=== PATIENT | male | born 1945 | race Caucasian/White ===

== ENCOUNTER → 2016-08-31 | Outpatient (CLI) | payer OTHER ==
[~2016-08-31] MED LIST: ZOFRAN4 MG PO
== END | disposition home or self-care (01) ==
LOC: CDC 14:14
DX: I49.9 Cardiac arrhythmia, unspecified (principal)
CPT/HCPCS: 93000

== ENCOUNTER 2017-11-28 16:59 | Inpatient (IN) | payer OTHER ==
[~2017-11-28] VITALS: Ht 188 cm; Wt 85.1 kg
[2017-11-28 18:30] LABS: BASOPHIL (%) 0.6 % (0-1); BASOPHIL COUNT 0.1 K/uL (0-0.1); EOSINOPHIL (%) 1.4 % (0-5); EOSINOPHIL COUNT 0.1 K/uL (0-0.3); HEMATOCRIT 39.8 % (38.0-50.0); IMMATURE GRANULOCYTE (%) 0.2 % (0.0-0.7); LYMPHOCYTE (%) 19.4 % (15-42); LYMPHOCYTE COUNT 1.6 K/uL (1.0-2.8); MCH 31.7 PG (29.0-34.0); MCHC 35.2 G/DL (30.0-36.0); MCV 90.2 FL (86-99); MONOCYTE (%) 9.9 % (3-12); MONOCYTE COUNT 0.8 K/uL (0-0.8); NEUTROPHIL (%) 68.5 % (45-76); NEUTROPHIL COUNT 5.8 K/uL (1.8-6.4); PLATELET COUNT 266 K/uL (156-360); RBC DIS.WIDTH-CV 12.7 % (11.8-14.6); RBC DIS.WIDTH-SD 41.8 % (39-53); RED BLOOD COUNT 4.41 M/uL (4.00-5.50); WHITE BLOOD COUNT 8.5 K/uL (4.1-10.2)
[2017-11-28 18:39] LABS: CHLORIDE 104 mEq/L (99-109); POTASSIUM 3.8 mEq/L (3.7-5.4); SODIUM 138 mEq/L (136-147)
[2017-11-28 18:41] LABS: GLUCOSE 84 mg/dL (70-99)
[2017-11-28 18:45] LABS: CREATININE 0.9 mg/dL (0.6-1.3); GFR ESTIMATE (CALCULATED) > 59 mL/min/ (58.99-99999)
[2017-11-28 18:46] LABS: UREA NITROGEN (BUN) 21 mg/dL (9-23)
[2017-11-28 18:50] LABS: INTER. NORMALIZED RATIO 1.1
[2017-11-28 18:52] LABS: TROP-I INTERPRETATION NEGATIVE; TROPONIN-I < 0.01 ng/mL (0.0-0.30)
[2017-11-28] MEDS ORDERED: BUPROPION XL300 MG PO (20:29)
[2017-11-28] MEDS ORDERED: ASPIRIN PO (20:38)
[2017-11-28 23:15] VITALS: BP 154/71
[2017-11-29 03:50] VITALS: BP 172/83
[2017-11-29 06:17] LABS: HEMOGLOBIN 13.3 G/DL (12.5-16.6); MCH 31.2 PG (29.0-34.0); MCHC 34.1 G/DL (30.0-36.0); MCV 91.5 FL (86-99); PLATELET COUNT 269 K/uL (156-360); RBC DIS.WIDTH-SD 43.2 % (39-53); RED BLOOD COUNT 4.26 M/uL (4.00-5.50); WHITE BLOOD COUNT 5.6 K/uL (4.1-10.2)
[2017-11-29 06:54] LABS: CHLORIDE 109 MEQ/L (99-109); CREATININE 0.8 MG/DL (0.6-1.3); GFR ESTIMATE (CALCULATED) > 59 mL/min/ (58.99-99999); POTASSIUM 4.3 MEQ/L (3.7-5.4); SODIUM 140 MEQ/L (136-147); UREA NITROGEN (BUN) 23 mg/dL (9-23)
[2017-11-29 06:58] LABS: GLUCOSE 152 mg/dL (70-99)
[2017-11-29 08:00] VITALS: BP 158/77
[2017-11-29 10:59] LABS: APPEARANCE CLEAR ((CLEAR)); BILIRUBIN NEGATIVE; BLOOD NEGATIVE; COLOR YELLOW ((YELLOW)); GLUCOSE (STRIP) >=500; KETONES NEGATIVE; LEUKOCYTES NEGATIVE; NITRITE NEGATIVE; PROTEIN (STRIP) NEGATIVE; SPECIFIC GRAVITY 1.018 (1.000-1.030); UCUL ADDED? NO; UROBILINOGEN 0.2 MG/DL (0.2-1.0)
[2017-11-29 11:48] VITALS: BP 165/76
[2017-11-29 16:00] VITALS: BP 187/86
[2017-11-29 21:52] VITALS: BP 171/77
[2017-11-29 23:43] VITALS: BP 154/73
[2017-11-30 06:05] VITALS: BP 165/72
[2017-11-30 06:38] LABS: BASOPHIL (%) 0.1 % (0-1); EOSINOPHIL (%) 0.1 % (0-5); HEMATOCRIT 40.2 % (38.0-50.0); HEMOGLOBIN 13.7 G/DL (12.5-16.6); IMMATURE GRANULOCYTE (%) 0.4 % (0.0-0.7); LYMPHOCYTE (%) 5.7 % (15-42); LYMPHOCYTE COUNT 0.7 K/uL (1.0-2.8); MCH 31.4 PG (29.0-34.0); MCHC 34.1 G/DL (30.0-36.0); MONOCYTE (%) 3.1 % (3-12); MONOCYTE COUNT 0.4 K/uL (0-0.8); NEUTROPHIL (%) 90.6 % (45-76); NEUTROPHIL COUNT 11.7 K/uL (1.8-6.4); PLATELET COUNT 275 K/uL (156-360); RBC DIS.WIDTH-SD 43.7 % (39-53); RED BLOOD COUNT 4.37 M/uL (4.00-5.50); WHITE BLOOD COUNT 12.9 K/uL (4.1-10.2)
[2017-11-30 06:59] LABS: ALKALINE PHOSPHATASE 57 IU/L (3-129); ALT (GPT) 17 IU/L (3-49); AST (GOT) 13 IU/L (2-34); CHLORIDE 106 MEQ/L (99-109); CREATININE 0.7 MG/DL (0.6-1.3); GFR ESTIMATE (CALCULATED) > 59 mL/min/ (58.99-99999); GLUCOSE 142 mg/dL (70-99); POTASSIUM 4.4 MEQ/L (3.7-5.4); SODIUM 138 MEQ/L (136-147); TOTAL BILIRUBIN 0.4 MG/DL (0.0-1.0); TOTAL PROTEIN 5.9 G/DL (6.4-8.3); UREA NITROGEN (BUN) 14 mg/dL (9-23)
[2017-11-30 08:11] VITALS: BP 170/79
[2017-11-30] MEDS ORDERED: HYDROCODON-ACE1 EAC9 PO (12:52)
[2017-11-30 13:41] VITALS: BP 131/66
[2017-11-30 15:48] VITALS: BP 134/63
[2017-11-30 20:24] VITALS: BP 120/58
[2017-12-01 00:09] VITALS: BP 126/59
[2017-12-01 04:46] VITALS: BP 139/62
[2017-12-01 07:57] VITALS: BP 150/80
[2017-12-01] MEDS ORDERED: CYCLOBENZAPRINE10 MG PO (10:31)
[2017-12-01] MEDS ORDERED: HYDROCODON-ACE1 EAC9 PO (10:33)
[2017-12-01 11:25] VITALS: BP 140/70
[2017-12-01 15:32] VITALS: BP 127/60
[2017-12-01 20:41] VITALS: BP 155/68
[2017-12-02 00:43] VITALS: BP 165/70
[2017-12-02 04:42] VITALS: BP 148/65
[2017-12-02 07:56] VITALS: BP 149/67
[2017-12-02 16:04] VITALS: BP 110/56
[2017-12-02 19:54] VITALS: BP 148/67
[2017-12-03] VITALS: BP 149/56
[2017-12-03 07:49] LABS: BASOPHIL (%) 0.6 % (0-1); BASOPHIL COUNT 0.1 K/uL (0-0.1); EOSINOPHIL (%) 2.4 % (0-5); EOSINOPHIL COUNT 0.2 K/uL (0-0.3); HEMATOCRIT 39.1 % (38.0-50.0); HEMOGLOBIN 12.9 G/DL (12.5-16.6); IMMATURE GRANULOCYTE (%) 3.6 % (0.0-0.7); LYMPHOCYTE (%) 23.6 % (15-42); LYMPHOCYTE COUNT 2.4 K/uL (1.0-2.8); MCH 31.1 PG (29.0-34.0); MCV 94.2 FL (86-99); MONOCYTE (%) 11.4 % (3-12); MONOCYTE COUNT 1.2 K/uL (0-0.8); NEUTROPHIL (%) 58.4 % (45-76); NEUTROPHIL COUNT 5.9 K/uL (1.8-6.4); PLATELET COUNT 254 K/uL (156-360); RBC DIS.WIDTH-CV 13.2 % (11.8-14.6); RBC DIS.WIDTH-SD 45.7 % (39-53); RED BLOOD COUNT 4.15 M/uL (4.00-5.50); WHITE BLOOD COUNT 10.1 K/uL (4.1-10.2)
[2017-12-03 08:05] LABS: ALBUMIN 3.4 G/DL (3.2-4.8); ALKALINE PHOSPHATASE 51 IU/L (3-129); ALT (GPT) 30 IU/L (3-49); CHLORIDE 103 MEQ/L (99-109); CREATININE 0.8 MG/DL (0.6-1.3); GFR ESTIMATE (CALCULATED) > 59 mL/min/ (58.99-99999); GLUCOSE 90 mg/dL (70-99); SODIUM 140 MEQ/L (136-147); TOTAL PROTEIN 5.7 G/DL (6.4-8.3); UREA NITROGEN (BUN) 21 mg/dL (9-23)
[2017-12-03 08:16] LABS: AST (GOT) 20 IU/L (2-34); TOTAL BILIRUBIN 0.3 MG/DL (0.0-1.0)
[2017-12-03 08:17] VITALS: BP 165/79
[2017-12-03] MEDS ORDERED: MAG-AL PLUS SUS30 ML PO (10:15)
[2017-12-03] MEDS ORDERED: POLYETHYLENE GL17 GM PO (10:15)
[2017-12-03] MEDS ORDERED: DOCUSATE SODIU100 MG PO (10:15)
== END 2017-12-03 12:50 | DRG 518 ==
LOC: EME 16:59 → EDOF 20:19 → 3EAST 20:19 → ENRESERV 20:23 → 3EAST 23:01
PROVIDERS: Emergency Medicine; Hospitalist
DX: M51.24 Other intervertebral disc displacement, thoracic region (principal); I65.22 Occlusion and stenosis of left carotid artery; I10 Essential (primary) hypertension; E78.5 Hyperlipidemia, unspecified; M51.04 Intervertebral disc disorders with myelopathy, thoracic region; I69.351 Hemiplegia and hemiparesis following cerebral infarction affecting right dominant side; F32.9 Major depressive disorder, single episode, unspecified; Z79.82 Long term (current) use of aspirin; G95.19 Other vascular myelopathies; I25.10 Atherosclerotic heart disease of native coronary artery without angina pectoris
CPT/HCPCS: 71045; 72020; 72128; 72146; 76000; 80048; 80053; 81003; 84484; 85025; 85027; 85610; 86850; 86900; 86901; 86920; 93005; 93306; 93880; 94799; 99281; 99285; J0131; J0330; J0690; J1100; J1170; J1885; J2250; J2405; J2710; J3010; J3370; J7030; J7643

== ENCOUNTER 2017-12-03 10:26 | Inpatient (IN) | payer OTHER ==
[~2017-12-03] VITALS: Ht 188 cm; Wt 96.2 kg
[~2017-12-03 10:26] MED LIST changes: +ASPIRIN PO; +BUPROPION XL300 MG PO; +CYCLOBENZAPRINE10 MG PO; +DOCUSATE SODIU100 MG PO; +HYDROCODON-ACE1 EAC9 PO; +MAG-AL PLUS SUS30 ML PO; +POLYETHYLENE GL17 GM PO
[2017-12-03 13:20] VITALS: BP 158/78
[2017-12-03 16:00] VITALS: BP 122/58
[2017-12-04] VITALS: BP 120/66
[2017-12-04 03:58] VITALS: BP 153/70
[2017-12-04 06:50] LABS: HEMATOCRIT 35.4 % (38.0-50.0); HEMOGLOBIN 11.8 G/DL (12.5-16.6); MCH 31.5 PG (29.0-34.0); MCHC 33.3 G/DL (30.0-36.0); MCV 94.4 FL (86-99); PLATELET COUNT 234 K/uL (156-360); RBC DIS.WIDTH-CV 13.4 % (11.8-14.6); RBC DIS.WIDTH-SD 45.7 % (39-53); RED BLOOD COUNT 3.75 M/uL (4.00-5.50); WHITE BLOOD COUNT 8.6 K/uL (4.1-10.2)
[2017-12-04 07:23] LABS: ALBUMIN 3.2 G/DL (3.2-4.8); ALKALINE PHOSPHATASE 48 IU/L (3-129); ALT (GPT) 27 IU/L (3-49); AST (GOT) 17 IU/L (2-34); CHLORIDE 103 MEQ/L (99-109); CREATININE 0.8 MG/DL (0.6-1.3); GFR ESTIMATE (CALCULATED) > 59 mL/min/ (58.99-99999); GLUCOSE 92 mg/dL (70-99); POTASSIUM 4.4 MEQ/L (3.7-5.4); SODIUM 139 MEQ/L (136-147); TOTAL BILIRUBIN 0.3 MG/DL (0.0-1.0); TOTAL PROTEIN 5.3 G/DL (6.4-8.3); UREA NITROGEN (BUN) 19 mg/dL (9-23)
[2017-12-04 16:47] VITALS: BP 140/67
[2017-12-05 04:32] VITALS: BP 128/75
[2017-12-05 16:00] VITALS: BP 116/69
[2017-12-06 06:02] VITALS: BP 134/66
[2017-12-06 15:24] VITALS: BP 122/57
[2017-12-07 06:13] VITALS: BP 137/68
[2017-12-07 15:41] VITALS: BP 124/59
[2017-12-08 04:39] VITALS: BP 150/72
[2017-12-08 15:05] VITALS: BP 11/57; BP 112/57
[2017-12-09 05:51] VITALS: BP 168/81
[2017-12-09 15:22] VITALS: BP 162/76
[2017-12-10 05:08] VITALS: BP 130/58
[2017-12-10 15:16] VITALS: BP 142/65
[2017-12-11 05:10] VITALS: BP 169/79
[2017-12-11 07:31] LABS: BASOPHIL (%) 0.2 % (0-1); EOSINOPHIL (%) 4.2 % (0-5); EOSINOPHIL COUNT 0.3 K/uL (0-0.3); HEMOGLOBIN 12.4 G/DL (12.5-16.6); IMMATURE GRANULOCYTE (%) 1.1 % (0.0-0.7); LYMPHOCYTE (%) 14.6 % (15-42); LYMPHOCYTE COUNT 1.2 K/uL (1.0-2.8); MCH 30.8 PG (29.0-34.0); MCHC 32.6 G/DL (30.0-36.0); MCV 94.5 FL (86-99); MONOCYTE (%) 9.7 % (3-12); MONOCYTE COUNT 0.8 K/uL (0-0.8); NEUTROPHIL (%) 70.2 % (45-76); NEUTROPHIL COUNT 5.6 K/uL (1.8-6.4); PLATELET COUNT 255 K/uL (156-360); RBC DIS.WIDTH-CV 13.2 % (11.8-14.6); RED BLOOD COUNT 4.02 M/uL (4.00-5.50)
[2017-12-11 07:56] LABS: CHLORIDE 107 MEQ/L (99-109); CREATININE 0.8 MG/DL (0.6-1.3); GFR ESTIMATE (CALCULATED) > 59 mL/min/ (58.99-99999); GLUCOSE 94 mg/dL (70-99); POTASSIUM 4.6 MEQ/L (3.7-5.4); SODIUM 141 MEQ/L (136-147); UREA NITROGEN (BUN) 15 mg/dL (9-23)
[2017-12-12 05:54] VITALS: BP 140/70
[2017-12-12 15:33] VITALS: BP 122/58
[2017-12-13 04:59] VITALS: BP 129/58
[2017-12-13 15:29] VITALS: BP 138/68
[2017-12-14 05:06] VITALS: BP 141/71
[2017-12-14 15:12] VITALS: BP 141/68
[2017-12-15 05:48] VITALS: BP 133/63
[2017-12-15 15:36] VITALS: BP 113/57
[2017-12-15 15:37] VITALS: BP 123/65
[2017-12-16 03:50] VITALS: BP 130/76
[2017-12-16 07:32] LABS: HEMATOCRIT 39.6 % (38.0-50.0); HEMOGLOBIN 12.9 G/DL (12.5-16.6); MCH 30.6 PG (29.0-34.0); MCHC 32.6 G/DL (30.0-36.0); MCV 93.8 FL (86-99); PLATELET COUNT 268 K/uL (156-360); RBC DIS.WIDTH-CV 13.2 % (11.8-14.6); RBC DIS.WIDTH-SD 45.1 % (39-53); RED BLOOD COUNT 4.22 M/uL (4.00-5.50); WHITE BLOOD COUNT 6.5 K/uL (4.1-10.2)
[2017-12-16 07:58] LABS: CHLORIDE 103 MEQ/L (99-109); CREATININE 0.8 MG/DL (0.6-1.3); GFR ESTIMATE (CALCULATED) > 59 mL/min/ (58.99-99999); GLUCOSE 84 mg/dL (70-99); POTASSIUM 4.7 MEQ/L (3.7-5.4); SODIUM 137 MEQ/L (136-147); UREA NITROGEN (BUN) 18 mg/dL (9-23)
[2017-12-16 15:40] VITALS: BP 115/59
[2017-12-17 05:07] VITALS: BP 163/72
[2017-12-17 15:49] VITALS: BP 105/54
[2017-12-18 05:54] VITALS: BP 128/57
[2017-12-18 15:52] VITALS: BP 144/65
[2017-12-19 05:43] VITALS: BP 132/70
[2017-12-19 16:14] VITALS: BP 106/53
[2017-12-20 05:33] VITALS: BP 144/63
[2017-12-20 15:09] VITALS: BP 128/70
[2017-12-21 07:03] VITALS: BP 126/60
[2017-12-21] MEDS ORDERED: PRAVASTATIN SOD40 MG PO (11:00)
[2017-12-21] MEDS ORDERED: LISINOPRIL10 MG PO (11:00)
[2017-12-21] MEDS ORDERED: CYCLOBENZAPRINE10 MG PO (11:00)
[2017-12-21] MEDS ORDERED: SENNA PLUS TAB1 EACH PO (11:00)
[2017-12-21] MEDS ORDERED: DOCUSATE SODIU100 MG PO (11:00)
[2017-12-21] MEDS ORDERED: BUPROPION XL300 MG PO (11:00)
[2017-12-21] MEDS ORDERED: POLYETHYLENE GL17 GM PO (11:00)
[2017-12-21] MEDS ORDERED: THERAGRAN1 TABLET PO (11:00)
[2017-12-21] MEDS ORDERED: HYDROCODON-ACE1 EAC7 PO (11:00)
== END 2017-12-21 14:20 | disposition home health service (06) | DRG 949 ==
LOC: 3WEST 10:26 → EDPENDDISDT 12-21 → 3WEST 12-21 14:20 → ENPENDDIS 12-22
PROVIDERS: Family Medicine Sports Medicine; Physical Medicine & Rehabilitation Pain Medicine
PROC: F07M0ZZ Range of Motion and Joint Mobility Treatment of Musculoskeletal System - Whole Body (ICD-10-PCS; principal; 2017-12-03)
DX: Z48.811 Encounter for surgical aftercare following surgery on the nervous system (principal); R53.1 Weakness; D62 Acute posthemorrhagic anemia; G95.19 Other vascular myelopathies; G95.20 Unspecified cord compression; F33.9 Major depressive disorder, recurrent, unspecified; I69.349 Monoplegia of lower limb following cerebral infarction affecting unspecified side; E78.5 Hyperlipidemia, unspecified; F41.1 Generalized anxiety disorder; G89.18 Other acute postprocedural pain; K59.00 Constipation, unspecified; I10 Essential (primary) hypertension; M21.371 Foot drop, right foot; M47.26 Other spondylosis with radiculopathy, lumbar region; M48.04 Spinal stenosis, thoracic region; M48.061 Spinal stenosis, lumbar region without neurogenic claudication; M51.16 Intervertebral disc disorders with radiculopathy, lumbar region; M51.24 Other intervertebral disc displacement, thoracic region; G89.29 Other chronic pain; M51.26 Other intervertebral disc displacement, lumbar region; M79.651 Pain in right thigh; R26.9 Unspecified abnormalities of gait and mobility; H91.90 Unspecified hearing loss, unspecified ear; G47.00 Insomnia, unspecified; Z98.1 Arthrodesis status
CPT/HCPCS: 80048; 80053; 85025; 85027; 97110 GO; 97530 GP; J1644